=== PATIENT | male | born 1995 | race Hispanic/Latino ===

== ENCOUNTER → 2025-09-04 | Outpatient (CLI) | payer OTHER ==
--- NOTE | 2025-09-04 14:40 | HMCIMG ---
EXAM: ULTRASOUND OF THE ABDOMEN Technique: Grayscale abdominal ultrasound. Clinical Information: Hepatitis B history; evaluation of abdominal organs. Findings: Liver: Measures 14.6 cm in maximal longitudinal dimension with normal contour and echogenicity; intrahepatic vascular structures are normal; no intrahepatic biliary ductal dilatation identified. Gallbladder and biliary tree: Gallbladder is distended with normal wall thickness of 1 mm and no sonographic evidence of cholecystitis; common bile duct measures 4 mm and is not dilated. Pancreas: Pancreatic body appears within normal limits; pancreatic head and tail are obscured by overlying bowel gas. Spleen: Measures 9.9 cm and is normal in echotexture and contour. Inferior vena cava and aorta: Normal in caliber where visualized. Right kidney: Measures 9.2 ??? 4.7 ??? 3.9 cm; increased echogenicity of the medullary pyramids consistent with medullary nephrocalcinosis; no hydronephrosis. Left kidney: Measures 9.6 ??? 4.6 ??? 4.9 cm; increased echogenicity of the medullary pyramids consistent with medullary nephrocalcinosis; no hydronephrosis. Peritoneum: No free fluid visualized. Impression: * Bilateral echogenic renal medullary pyramids, compatible with medullary nephrocalcinosis; correlate with metabolic/electrolyte abnormalities (e.g., hypercalciuria, hyperparathyroidism, renal tubular acidosis) and consider urinalysis and serum calcium/phosphate if not recent. * Liver of normal size and sonographic appearance without biliary dilatation; gallbladder normal with a 1 mm wall and common bile duct measuring 4 mm. * Pancreatic head and tail obscured by bowel gas, limiting evaluation; pancreatic body unremarkable where visualized. /Lynn
== END | disposition home or self-care (01) ==
LOC: EEVIPCON 09:00 → RAH 09:00
PROVIDERS: ATTEND Physical Medicine & Rehabilitation
DX: K82.8 Other specified diseases of gallbladder (principal); B19.10 Unspecified viral hepatitis B without hepatic coma; R14.0 Abdominal distension (gaseous)
CPT/HCPCS: 76700